=== PATIENT | female | born 1965 | race Caucasian/White ===

== ENCOUNTER 2016-04-04 10:48 | Day surgery (SDC) | payer OTHER ==
[~2016-04-04 10:48] MED LIST: DIPRIVAN 200 MG/20 ML IV ONE; Kenalog-40 IM ONE; Lactated Ringers 1,000 ML IV SCH; Sensorcaine 0.25% 10 ML IJ ONE
[2016-04-04] MEDS ORDERED: Lactated Ringers 1,000 ML IV ONE (10:50)
[2016-04-04 12:29] VITALS: BP 114/69; PULSE 75; O2SAT 98
--- NOTE | 2016-04-04 15:40 | XRAY ---
9seconds fluoroscopy time in surgery for right MBB L3-5.
--- NOTE | 2016-04-04 17:02 | XRAY ---
Indication: Right L3-L5 medial branch block. Intraoperative fluoroscopy was provided for 9 seconds. Single digital spot image submitted for interpretation demonstrates 4 posterior spinal needles with the tips just lateral to the right L3-S1 facets. Correlate with intraoperative findings/report.
== END 2016-04-04 14:20 | disposition home or self-care (01) ==
LOC: SDC-PAIN 10:48
PROVIDERS: ATTEND Pain Medicine Interventional Pain Medicine
DX: M25.552 Pain in left hip (principal); M70.62 Trochanteric bursitis, left hip; M54.16 Radiculopathy, lumbar region; Z79.891 Long term (current) use of opiate analgesic
CPT/HCPCS: 64493; 64494; 64495; 72020; 77003; J2704; J3301

== ENCOUNTER 2018-03-12 07:27 | Day surgery (SDC) | payer OTHER ==
[2018-03-12] MEDS ORDERED: Marcaine 0.5% SDV 10 ML IJ ONE (07:28)
[2018-03-12] MEDS ORDERED: Depo-Medrol 40 MG/ML IM ONE (07:28)
[2018-03-12] MEDS ORDERED: DIPRIVAN 200 MG/20 ML IV ONE (07:28)
--- NOTE | 2018-03-12 12:17 | XRAY ---
Indication: Right knee injection. Intraoperative fluoroscopy was provided for 20 seconds. Single digital spot image submitted for interpretation demonstrates spinal needle tip projecting over the right intercondylar notch. Small amount of contrast injected for needle tip placement. Correlate with intraoperative findings/report.
--- NOTE | 2018-03-12 12:17 | XRAY ---
Indication: Right hip injection. Intraoperative fluoroscopy was provided for 8 seconds. 2 digital spot images submitted for interpretation demonstrates spinal needle tip projecting over the right femur neck. Small amount of contrast injected for needle tip placement. Correlate with intraoperative findings/report.
--- NOTE | 2018-03-12 12:19 | XRAY ---
Indication: Left knee injection. Intraoperative fluoroscopy was provided for 4 seconds. Single digital spot image submitted for interpretation demonstrates spinal needle tip projecting over the left intercondylar notch. Small amount of contrast injected for needle tip placement. Correlate with intraoperative findings/report.
--- NOTE | 2018-03-12 14:44 | XRAY ---
20 seconds fluoroscopy time in surgery for right knee injection.
--- NOTE | 2018-03-12 14:44 | XRAY ---
8 seconds fluoroscopy time in surgery for right hip injection.
--- NOTE | 2018-03-12 14:55 | XRAY ---
4 seconds fluoroscopy time in surgery for left knee injection.
[2018-03-12] MEDS ORDERED: Lactated Ringers 2,000 ML IV ONE (14:57)
== END 2018-03-12 11:18 | disposition home or self-care (01) ==
LOC: SDC-PAIN 07:27
PROVIDERS: ATTEND Psychiatry & Neurology Pain Medicine
DX: M17.0 Bilateral primary osteoarthritis of knee (principal); M16.11 Unilateral primary osteoarthritis, right hip; E11.9 Type 2 diabetes mellitus without complications; I10 Essential (primary) hypertension
CPT/HCPCS: 20610; 73501; 73560; 77002; 82962; J1030; J2704; Q9966

== ENCOUNTER 2020-11-23 10:02 | Day surgery (SDC) | payer OTHER ==
[2020-11-23] MEDS ORDERED: Sodium Chloride 0.9(Preservative Free) 10 ML IJ ONE (10:03)
[2020-11-23] MEDS ORDERED: Depo-Medrol 40 MG/ML IM ONE (10:03)
[2020-11-23] MEDS ORDERED: DIPRIVAN 200 MG/20 ML IV ONE ×2 (11:23→12:57)
--- NOTE | 2020-11-23 13:03 | XRAY ---
26 seconds fluoroscopy time in surgery for left L3-L5 transforaminal BHAVNA.
--- NOTE | 2020-11-23 13:11 | XRAY ---
Indication: Left L3-L5 transforaminal BHAVNA. Intraoperative fluoroscopy provided for 26 seconds. 3 digital spot image submitted for interpretation demonstrate posterior needle tips projecting over the expected left L3 and L4 nerve roots. Small amount of contrast injected for needle tip placement. Correlate with intraoperative findings/report.
[2020-11-23] MEDS ORDERED: Lactated Ringers 1,000 ML IV ONE (15:26)
== END 2020-11-23 11:51 | disposition home or self-care (01) ==
LOC: SDC-PAIN 10:02
PROVIDERS: ATTEND Psychiatry & Neurology Pain Medicine
DX: M54.16 Radiculopathy, lumbar region (principal); E11.9 Type 2 diabetes mellitus without complications; Z79.899 Other long term (current) drug therapy
CPT/HCPCS: 64483; 64484; 72100; 77003; 82947; 84703; J1030; J2704; Q9966

== ENCOUNTER → 2021-09-27 | Day surgery (SDC) | payer OTHER | LOC: SDC-PAIN 09:29 | PROVIDERS: ATTEND Psychiatry & Neurology Pain Medicine | DX: Z53.8 Procedure and treatment not carried out for other reasons (principal); Z79.899 Other long term (current) drug therapy | CPT/HCPCS: 81025; 82947 ==

== ENCOUNTER 2021-10-18 09:07 | Day surgery (SDC) | payer OTHER ==
[2021-10-18] MEDS ORDERED: Sodium Chloride 0.9(Preservative Free) 10 ML IJ ONE (09:08)
[2021-10-18] MEDS ORDERED: Depo-Medrol 40 MG/ML IM ONE (09:08)
[2021-10-18] MEDS ORDERED: BENADRYL 50 MG/ML ONE (10:07)
[2021-10-18] MEDS ORDERED: TORAdol 30 mg Injection ONE (10:07)
[2021-10-18] MEDS ORDERED: Zofran 4 MG/2 ML VIAL ONE (10:07)
--- NOTE | 2021-10-18 13:36 | XRAY ---
Indication: Left L3-L5 transforaminal BHAVNA. Intraoperative fluoroscopy provided for 24 seconds. 4 digital spot image submitted for interpretation demonstrates posterior needle tips projecting over the expected left L3 and L4 nerve roots. Small amount of contrast injected for needle tip placement. Correlate with intraoperative findings/report.
--- NOTE | 2021-10-18 13:38 | XRAY ---
24 seconds fluoroscopy time in surgery for right L3-L5 transforaminal BHAVNA.
== END 2021-10-18 12:49 | disposition home or self-care (01) ==
LOC: SDC-PAIN 09:07
PROVIDERS: ATTEND Psychiatry & Neurology Pain Medicine
DX: M54.16 Radiculopathy, lumbar region (principal); E11.9 Type 2 diabetes mellitus without complications; Z79.899 Other long term (current) drug therapy
CPT/HCPCS: 64483; 64484; 72100; 77003; 81025; 82947; J1030; J1200; J1885; J2405; Q9966

== ENCOUNTER 2021-11-15 08:35 | Day surgery (SDC) | payer OTHER ==
[2021-11-15] MEDS ORDERED: LIDOCAINE HCL 2% 100 MG/5 ML IJ ONE (08:36)
[2021-11-15] MEDS ORDERED: Zofran 4 MG/2 ML VIAL ONE (09:52)
[2021-11-15] MEDS ORDERED: BENADRYL 50 MG/ML ONE (09:52)
[2021-11-15] MEDS ORDERED: Lactated Ringers 1,000 ML IV ONE ×2 (10:56→11:18)
[2021-11-15] MEDS ORDERED: DIPRIVAN 200 MG/20 ML IV ONE (11:20)
--- NOTE | 2021-11-15 12:34 | XRAY ---
Indication: Bilateral L4-S1 MBB. Intraoperative fluoroscopy provided for 19 seconds. Single digital spot image submitted for interpretation demonstrates posterior needle tips projecting over the expected right L4 and S1 nerve roots. geospatial technologist who obtained images informs me surgeon removed left L4-S1 and right L5 needles before images could be obtained. Correlate with intraoperative findings/report.
--- NOTE | 2021-11-15 13:23 | XRAY ---
19 seconds of fluoroscopy was used in surgery for a bilateral L4-S1 MBB.
== END 2021-11-15 10:55 | disposition home or self-care (01) ==
LOC: SDC-PAIN 08:35
PROVIDERS: ATTEND Psychiatry & Neurology Pain Medicine
DX: M47.816 Spondylosis without myelopathy or radiculopathy, lumbar region (principal); E10.9 Type 1 diabetes mellitus without complications; Z79.899 Other long term (current) drug therapy
CPT/HCPCS: 64493; 64494; 72020; 77002; 81025; 82947; J1200; J2405; J2704

== ENCOUNTER 2022-02-21 09:49 | Day surgery (SDC) | payer OTHER ==
[2022-02-21] MEDS ORDERED: Depo-Medrol 40 MG/ML IM ONE (09:50)
[2022-02-21] MEDS ORDERED: Sodium Chloride 0.9(Preservative Free) 10 ML IJ ONE (09:50)
[2022-02-21] MEDS ORDERED: TORAdol 30 mg Injection ONE (12:15)
[2022-02-21] MEDS ORDERED: Zofran 4 MG/2 ML VIAL ONE (12:15)
[2022-02-21] MEDS ORDERED: DIPRIVAN 200 MG/20 ML IV ONE (12:42)
--- NOTE | 2022-02-21 14:31 | XRAY ---
Indication: Right L4-S1 transforaminal BHAVNA. Intraoperative fluoroscopy provided for 31 seconds. 5 digital spot images submitted for interpretation demonstrates posterior needle tips projecting over the right L4-L5 nerve roots. Small amount of contrast injected for needle tip placement. Correlate with intraoperative findings/report.
[2022-02-21] MEDS ORDERED: Lactated Ringers 1,000 ML IV ONE (14:33)
--- NOTE | 2022-02-21 15:13 | XRAY ---
31 seconds of fluoroscopy was used in surgery for a right L4-S1 transforaminal BHAVNA.
== END 2022-02-21 13:20 | disposition home or self-care (01) ==
LOC: SDC-PAIN 09:49
PROVIDERS: ATTEND Psychiatry & Neurology Pain Medicine
DX: M54.16 Radiculopathy, lumbar region (principal); E10.9 Type 1 diabetes mellitus without complications
CPT/HCPCS: 64483; 64484; 72100; 77003; 82947; J1030; J1885; J2405; J2704; Q9966

== ENCOUNTER 2023-06-19 09:26 | Day surgery (SDC) | payer OTHER ==
[2023-06-19] MEDS ORDERED: Sodium Chloride 0.9(Preservative Free) 10 ML IJ ONE (09:27)
[2023-06-19] MEDS ORDERED: Decadron 4 MG INJ IV ONE (09:27)
[2023-06-19] MEDS ORDERED: Lactated Ringers 1,000 ML IV ONE (10:11)
[2023-06-19] MEDS ORDERED: DIPRIVAN 200 MG/20 ML IV ONE (10:43)
[2023-06-19] MEDS ORDERED: Xylocaine-Mpf 2% 5 Ml Vial ONE (10:44)
--- NOTE | 2023-06-19 12:47 | XRAY ---
17 seconds of fluoroscopy was used in surgery for a right L3-L5 transforaminal BHAVNA.
--- NOTE | 2023-06-20 11:24 | XRAY ---
17 seconds of fluoroscopy was used in surgery for a right L3-L5 transforaminal BHAVNA.
== END 2023-06-19 11:23 | disposition home or self-care (01) ==
LOC: SDC-PAIN 09:26
PROVIDERS: ATTEND Psychiatry & Neurology Pain Medicine
DX: M54.16 Radiculopathy, lumbar region (principal); E11.9 Type 2 diabetes mellitus without complications
CPT/HCPCS: 64483; 64484; 72100; 77003; 82947; J1100; J2704; Q9966

== ENCOUNTER 2024-02-19 07:08 | Day surgery (SDC) | payer OTHER ==
[2024-02-19] MEDS ORDERED: propofoL IV ONE (09:04)
--- NOTE | 2024-02-19 10:07 | XRAY ---
Indication: Right knee injection. Intraoperative fluoroscopy provided for 3 seconds. Single digital spot image submitted for interpretation demonstrates needle tip projecting over right femur intercondylar notch. Small amount of contrast injected for needle tip placement. Correlate with intraoperative findings/report.
--- NOTE | 2024-02-19 10:39 | XRAY ---
3 seconds of fluoroscopy was used in surgery for a right intra-articular knee injection.
== END 2024-02-19 09:38 | disposition home or self-care (01) ==
LOC: SDC-PAIN 07:08
PROVIDERS: ATTEND Psychiatry & Neurology Pain Medicine
DX: M17.11 Unilateral primary osteoarthritis, right knee (principal); E11.9 Type 2 diabetes mellitus without complications; M70.51 Other bursitis of knee, right knee
CPT/HCPCS: 20552; 20610; 73560; 77002; 82947; J2704; Q9966

== ENCOUNTER 2024-04-01 07:19 | Day surgery (SDC) | payer OTHER ==
[2024-04-01] MEDS ORDERED: dexAMETHasone sodium phosphate IJ ONE (07:20)
[2024-04-01] MEDS ORDERED: Sodium Chloride 0.9(Preservative Free) 10 ML IJ ONE (07:20)
[2024-04-01] MEDS ORDERED: Zofran 4 MG/2 ML VIAL ONE (08:17)
[2024-04-01] MEDS ORDERED: BENADRYL 50 MG/ML ONE (08:17)
[2024-04-01] MEDS ORDERED: Hydromorphone 1 mg/ml Injection ONE (08:18)
[2024-04-01] MEDS ORDERED: propofoL IV ONE (09:02)
--- NOTE | 2024-04-01 10:26 | XRAY ---
Indication: Right L4-S1 transforaminal BHAVNA. Intraoperative fluoroscopy provided for 27 second. 2 digital spot image submitted for interpretation demonstrates posterior needle tips projecting over expected right L4 and L5 nerve roots. Small amount of contrast injected for needle tip placement. Correlate with intraoperative findings/report.
--- NOTE | 2024-04-01 10:30 | XRAY ---
27 seconds of fluoroscopy was used in surgery for a right L4-S1 transforaminal BHAVNA.
== END 2024-04-01 09:46 | disposition home or self-care (01) ==
LOC: SDC-PAIN 07:19
PROVIDERS: ATTEND Psychiatry & Neurology Pain Medicine
DX: M54.16 Radiculopathy, lumbar region (principal); E11.9 Type 2 diabetes mellitus without complications
CPT/HCPCS: 64483; 64484; 72100; 77003; 82947; J1100; J1171; J1200; J2405; J2704; Q9966